=== PATIENT | male | born 1970 | race Caucasian/White ===

== ENCOUNTER 2025-02-05 11:37 | Emergency (ER) | payer OTHER ==
[~2025-02-05] VITALS: Ht 167.6 cm; Wt 76.4 kg
[2025-02-05 12:26] LABS: PLATELET COUNT (AUTO) 199 K/uL (150-450); RED BLOOD CELL COUNT(AUTO) 5.45 MIL/uL (4.50-5.90); RED CELL DISTRIBUTION WIDTH 13.8 % (11.5-14.5); WHITE BLOOD COUNT (AUTO) 11.3 K/uL (4.5-11.0)
[2025-02-05 12:37] LABS: CALCIUM, TOTAL 8.5 mg/dL (8.8-10.5); CREATININE 1.01 mg/dL (0.60-1.30); GLOMERULAR FILTR. RATE CALC > 60 mL/min (>60); GLUCOSE,RANDOM 105 mg/dL (70-110); SODIUM SERUM 139 mmol/L (136-145); UREA NITROGEN, BLOOD 9 mg/dL (7-18)
[2025-02-05] MEDS: MORPHINE SULFATE 2 MG/ML SYRINGE IVP ONE (12:40)
[2025-02-05] MEDS: ACETAMINOPHEN 500 MG TABLET PO ONE (12:40)
[2025-02-05] MEDS: LIDOCAINE 5% TRANSDERMAL PATCH TD ONE (12:40)
[2025-02-05 12:41] LABS: ASPARTATE AMINOTRANSFERASE 31.0 U/L (15-37); TOTAL PROTEIN, SERUM 8.3 g/dL (6.4-8.2)
[2025-02-05] MEDS ORDERED: SODIUM CHLORIDE 0.9% 100 ML ONE (13:44)
[2025-02-05] MEDS ORDERED: IOHEXOL 350 MG/ML 100 ML VIAL ONE (13:44)
[2025-02-05 14:07] LABS: APPEARANCE,URINE CLEAR (CLEAR); GLUCOSE, URINE (UA) NEGATIVE (NEGATIVE); LEUKOCYTE ESTERASE ,URINE NEGATIVE (NEGATIVE); NITRATE,URINE NEGATIVE (NEGATIVE); OCCULT BLOOD,URINE NEGATIVE (NEGATIVE); SPECIFIC GRAVITIY, URINE 1.013 (1.003-1.030)
[2025-02-05 14:12] VITALS: BP 125/68; PULSE 70; RESP 18; TEMP 98.1; O2SAT 99
== END 2025-02-05 16:31 ==
LOC: EMS 12:06
DX: S30.13XA Contusion of flank (latus) region, initial encounter (principal); R51.9 Headache, unspecified; M54.50 Low back pain, unspecified; R07.81 Pleurodynia; F41.9 Anxiety disorder, unspecified; W19.XXXA Unspecified fall, initial encounter; Y93.89 Activity, other specified; Y92.89 Other specified places as the place of occurrence of the external cause; Y99.8 Other external cause status
CPT/HCPCS: 70450; 99285; 96374; 71045; 80048; 80076; 81003; 83690; 85025; 36415; 71260; 72125; 72128; 72131; 72193; 74160; Q9967; J2270; J7050

== ENCOUNTER 2025-02-06 11:34 | Inpatient (IN) | payer OTHER ==
[~2025-02-06] VITALS: Ht 157.5 cm; Wt 76.4 kg
[2025-02-06] MEDS ORDERED: MAGNESIUM HYDROXIDE SUSPENSION 30 ML UDCUP PO PRN (13:45)
[2025-02-06] MEDS: ACETAMINOPHEN 325 MG TABLET PO PRN (14:24)
[2025-02-06 15:19] LABS: APPEARANCE,URINE CLEAR (CLEAR); GLUCOSE, URINE (UA) NEGATIVE (NEGATIVE); LEUKOCYTE ESTERASE ,URINE NEGATIVE (NEGATIVE); NITRATE,URINE NEGATIVE (NEGATIVE); OCCULT BLOOD,URINE NEGATIVE (NEGATIVE); PH,URINE DRUG SCREEN 5.5 (5.0-8.0); SPECIFIC GRAVITIY, URINE 1.004 (1.003-1.030)
[2025-02-06 15:25] LABS: AMPHET/METH SCREEN,URINE NEGATIVE (NEGATIVE); BARBITURATE SCREEN, URINE NEGATIVE (NEGATIVE); CANNABINOID SCREEN,URINE NEGATIVE (NEGATIVE); COCAINE SCREEN,URINE NEGATIVE (NEGATIVE); METHADONE SCREEN, URINE NEGATIVE (NEGATIVE)
[2025-02-06 15:28] LABS: ALCOHOL, URINE DRUG SCREEN NEGATIVE (NEGATIVE)
[2025-02-06 15:54] LABS: CALCIUM, TOTAL 8.3 mg/dL (8.8-10.5); CREATININE 0.68 mg/dL (0.60-1.30); GLOMERULAR FILTR. RATE CALC > 60 mL/min (>60); GLUCOSE,RANDOM 95 mg/dL (70-110); PLATELET COUNT (AUTO) 191 K/uL (150-450); RED BLOOD CELL COUNT(AUTO) 5.47 MIL/uL (4.50-5.90); RED CELL DISTRIBUTION WIDTH 14.0 % (11.5-14.5); SODIUM SERUM 142 mmol/L (136-145); UREA NITROGEN, BLOOD 7 mg/dL (7-18); WHITE BLOOD COUNT (AUTO) 8.6 K/uL (4.5-11.0)
[2025-02-06 20:53] VITALS: BP 150/97; PULSE 85; RESP 19; TEMP 98.2; O2SAT 99
[2025-02-06] MEDS: ZOLPIDEM TARTRATE 5 MG TABLET PO PRN (20:53)
[2025-02-06 21:06] LABS: MTB PCR w/Rif. Resistance-SPUT NOT DETECTED (Not Detectd)
[2025-02-07] MEDS ORDERED: SODIUM CHLORIDE 3% 15 ML NEB SOLUTION NEB ONE (01:17)
[2025-02-07 04:07] VITALS: BP 118/79; PULSE 80; RESP 18; TEMP 98.1; O2SAT 98
[2025-02-07 08:36] LABS: MTB PCR w/Rif. Resistance-SPUT NOT DETECTED (Not Detectd)
[2025-02-07 08:37] VITALS: BP 138/94; PULSE 70; RESP 18; TEMP 97.7; O2SAT 100
[2025-02-07] MEDS: FAMOTIDINE 20 MG TABLET PO SCH (09:14)
[2025-02-07 20:08] VITALS: BP 152/81; PULSE 85; RESP 18; TEMP 98.6; O2SAT 99
[2025-02-08 04:15] VITALS: BP 129/87; PULSE 84; RESP 18; TEMP 98.1; O2SAT 98
[2025-02-08 08:33] VITALS: BP 139/97; PULSE 88; RESP 20; TEMP 98.4; O2SAT 98
[2025-02-08 12:58] VITALS: BP 147/85; PULSE 73; RESP 18; TEMP 97.7; O2SAT 97
[2025-02-08] MEDS ORDERED: ALPR-707 PO (14:38)
[2025-02-08] MEDS ORDERED: ZOLP-685 PO (14:39)
[2025-02-08 16:07] LABS: QUANTIFERON+, Nil Value 0.02 IU/mL; QUANTIFERON+,Mitogen Value >10.00 IU/mL; QUANTIFERON+,TB1 Antigen Value 0.28 IU/mL; QUANTIFERON+,TB2 Antigen Value 0.18 IU/mL; QUANTIFERON, TB GOLD PLUS Negative (Negative)
[2025-02-08 19:56] VITALS: BP 133/81; PULSE 81; RESP 18; TEMP 99.5; O2SAT 99
[2025-02-09 04:56] VITALS: BP 121/85; PULSE 80; RESP 18; TEMP 98.8; O2SAT 97
[2025-02-09 08:29] VITALS: BP 129/87; PULSE 77; RESP 20; TEMP 98.2; O2SAT 97
[2025-02-09 20:14] VITALS: BP 132/92; PULSE 89; RESP 18; TEMP 98.1; O2SAT 97
[2025-02-10 05:27] VITALS: BP 128/97; PULSE 91; RESP 18; TEMP 98.4; O2SAT 98
[2025-02-10 08:32] VITALS: BP 140/86; PULSE 90; RESP 19; TEMP 98; O2SAT 97
[2025-02-10 19:41] VITALS: BP 137/88; PULSE 68; RESP 18; TEMP 97.7; O2SAT 97
[2025-02-11 05:10] VITALS: BP 136/95; PULSE 72; RESP 18; TEMP 98.9; O2SAT 96
[2025-02-11 08:00] VITALS: BP 135/95; PULSE 83; RESP 20; TEMP 98.1; O2SAT 98
[2025-02-11 20:00] VITALS: BP 141/96; PULSE 79; RESP 19; TEMP 98.4; O2SAT 98
== END 2025-02-11 23:30 | DRG 885 ==
LOC: EMS 11:36 → EDH 13:35 → 6S 20:40
PROVIDERS: ADMIT Internal Medicine; ATTEND Internal Medicine
PROC: GZ58ZZZ Individual Psychotherapy, Cognitive-Behavioral (ICD-10-PCS; principal; 2025-02-08)
PROC: GZ56ZZZ Individual Psychotherapy, Supportive (ICD-10-PCS; 2025-02-08)
DX: F33.1 Major depressive disorder, recurrent, moderate (principal); F13.239 Sedative, hypnotic or anxiolytic dependence with withdrawal, unspecified; F41.1 Generalized anxiety disorder; E66.9 Obesity, unspecified; G47.00 Insomnia, unspecified; Z78.9 Other specified health status; Z68.30 Body mass index [BMI] 30.0-30.9, adult
CPT/HCPCS: 71046; 71250; 80048; 80307; 81003; 85025; 86480; 87015; 87206; 87389; 87556; 94640; 99285; 36415-L1; 36415-TC

== ENCOUNTER 2025-02-13 13:35 | Inpatient (IN) | payer OTHER ==
[~2025-02-13] VITALS: Ht 162.6 cm; Wt 66.4 kg
[~2025-02-13 13:35] MED LIST: ZOLP-685 PO
[2025-02-13 15:22] LABS: PLATELET COUNT (AUTO) 200 K/uL (150-450); RED BLOOD CELL COUNT(AUTO) 5.71 MIL/uL (4.50-5.90); RED CELL DISTRIBUTION WIDTH 13.5 % (11.5-14.5); WHITE BLOOD COUNT (AUTO) 14.8 K/uL (4.5-11.0)
[2025-02-13 15:30] LABS: CALCIUM, TOTAL 8.8 mg/dL (8.8-10.5); CREATININE 1.11 mg/dL (0.60-1.30); GLOMERULAR FILTR. RATE CALC > 60 mL/min (>60); GLUCOSE,RANDOM 105 mg/dL (70-110); SODIUM SERUM 137 mmol/L (136-145); UREA NITROGEN, BLOOD 32 mg/dL (7-18)
[2025-02-13 15:32] LABS: ALCOHOL, BLOOD (SERUM) < 3 mg/dL (0-10)
[2025-02-13 15:35] LABS: ASPARTATE AMINOTRANSFERASE 39 U/L (15-37); TOTAL PROTEIN, SERUM 8.5 g/dL (6.4-8.2)
[2025-02-13] MEDS: SODIUM CHLORIDE 0.9% 1,000 ML IV ONE (16:00)
[2025-02-13] MEDS: LORazepam 2 MG/ML VIAL IVP ONE (16:00)
[2025-02-13] MEDS ORDERED: MORPHINE SULFATE 4 MG/ML SYRINGE IVP PRN (16:45)
[2025-02-13] MEDS ORDERED: BISACODYL 10 MG RECTAL RECTAL SUPPOSITORY PR PRN (16:45)
[2025-02-13] MEDS ORDERED: ONDANSETRON HCL 4 MG/2 ML VIAL IVP PRN (16:45)
[2025-02-13] MEDS ORDERED: ZOLPIDEM TARTRATE 5 MG TABLET PO PRN (16:45)
[2025-02-13] MEDS ORDERED: MAGNESIUM HYDROXIDE SUSPENSION 30 ML UDCUP PO PRN (16:45)
[2025-02-13] MEDS: MAGNESIUM SULFATE 2 GM, MVI, ADULT NO.1 WITH VIT K 10 ML, THIAMINE 100 MG, FOLIC ACID 1... IV ONE (17:16)
[2025-02-13 18:15] VITALS: BP 131/69; RESP 20; TEMP 98.8; O2SAT 98
[2025-02-13 20:24] VITALS: BP 111/75; PULSE 87; RESP 20; TEMP 98.4; O2SAT 98
[2025-02-13] MEDS: DOCUSATE SODIUM 100 MG CAPSULE PO SCH (21:00)
[2025-02-13 23:40] VITALS: BP 99/75; PULSE 87; RESP 20; TEMP 98.2; O2SAT 97
[2025-02-14] MEDS: HEPARIN SODIUM,PORCINE 5,000 UNITS/ML VIAL SQ SCH
[2025-02-14 03:07] LABS: APPEARANCE,URINE CLEAR (CLEAR); GLUCOSE, URINE (UA) NEGATIVE (NEGATIVE); LEUKOCYTE ESTERASE ,URINE NEGATIVE (NEGATIVE); NITRATE,URINE NEGATIVE (NEGATIVE); OCCULT BLOOD,URINE NEGATIVE (NEGATIVE); PH,URINE DRUG SCREEN 5.5 (5.0-8.0); SPECIFIC GRAVITIY, URINE 1.033 (1.003-1.030)
[2025-02-14 03:12] LABS: ALCOHOL, URINE DRUG SCREEN NEGATIVE (NEGATIVE); AMPHET/METH SCREEN,URINE NEGATIVE (NEGATIVE); BARBITURATE SCREEN, URINE NEGATIVE (NEGATIVE); CANNABINOID SCREEN,URINE NEGATIVE (NEGATIVE); COCAINE SCREEN,URINE NEGATIVE (NEGATIVE); METHADONE SCREEN, URINE NEGATIVE (NEGATIVE)
[2025-02-14 04:21] VITALS: BP 110/78; PULSE 84; RESP 19; TEMP 97.5; O2SAT 96
[2025-02-14 07:38] VITALS: BP 124/74; PULSE 91; RESP 18; TEMP 97.5; O2SAT 95
[2025-02-14 07:41] LABS: CALCIUM, TOTAL 7.7 mg/dL (8.8-10.5); CREATININE 0.95 mg/dL (0.60-1.30); GLOMERULAR FILTR. RATE CALC > 60 mL/min (>60); GLUCOSE,RANDOM 63 mg/dL (70-110); SODIUM SERUM 141 mmol/L (136-145); UREA NITROGEN, BLOOD 24 mg/dL (7-18)
[2025-02-14 07:45] LABS: PLATELET COUNT (AUTO) 173 K/uL (150-450); RED BLOOD CELL COUNT(AUTO) 5.01 MIL/uL (4.50-5.90); RED CELL DISTRIBUTION WIDTH 13.7 % (11.5-14.5); WHITE BLOOD COUNT (AUTO) 11.8 K/uL (4.5-11.0)
[2025-02-14] MEDS: PANTOPRAZOLE SODIUM 40 MG DR TABLET PO SCH (08:35)
[2025-02-14 12:02] VITALS: BP 118/68; PULSE 105; RESP 18; TEMP 98.1; O2SAT 98
[2025-02-14] MEDS: LORazepam 2 MG/ML VIAL IVP ONE (13:10)
[2025-02-14] MEDS ORDERED: LORazepam 2 MG/ML VIAL IVP ONE (13:30)
[2025-02-14 15:22] VITALS: BP 127/89; PULSE 130; RESP 18; TEMP 97.5; O2SAT 95
[2025-02-14] MEDS: MAGNESIUM SULFATE 2 GM, MVI, ADULT NO.1 WITH VIT K 10 ML, THIAMINE 100 MG, FOLIC ACID 1... IV ONE (18:21)
[2025-02-14 23:33] VITALS: BP 129/84; PULSE 103; RESP 17; TEMP 97.5; O2SAT 96
[2025-02-15] VITALS (8 sets, daily range): BP systolic 117–142; BP diastolic 72–90; PULSE 78–98; RESP 18–20; TEMP 97–98.8; O2SAT 94–98
[2025-02-15 06:55] LABS: PLATELET COUNT (AUTO) 187 K/uL (150-450); RED BLOOD CELL COUNT(AUTO) 5.03 MIL/uL (4.50-5.90); RED CELL DISTRIBUTION WIDTH 13.5 % (11.5-14.5); WHITE BLOOD COUNT (AUTO) 12.3 K/uL (4.5-11.0)
[2025-02-15 07:08] LABS: CALCIUM, TOTAL 7.3 mg/dL (8.8-10.5); CREATININE 0.86 mg/dL (0.60-1.30); GLOMERULAR FILTR. RATE CALC > 60 mL/min (>60); GLUCOSE,RANDOM 54 mg/dL (70-110); SODIUM SERUM 142 mmol/L (136-145); UREA NITROGEN, BLOOD 19 mg/dL (7-18)
[2025-02-15] MEDS: ACETAMINOPHEN 325 MG TABLET PO PRN (21:15)
[2025-02-16 04:30] VITALS: BP 114/69; PULSE 91; RESP 18; TEMP 98.2; O2SAT 98
[2025-02-16] MEDS: HYDROCODONE/ACETAMINOPHEN 5-325 MG TABLET PO PRN (05:20)
[2025-02-16 08:25] LABS: PLATELET COUNT (AUTO) 183 K/uL (150-450); RED BLOOD CELL COUNT(AUTO) 4.95 MIL/uL (4.50-5.90); RED CELL DISTRIBUTION WIDTH 13.7 % (11.5-14.5); WHITE BLOOD COUNT (AUTO) 7.3 K/uL (4.5-11.0)
[2025-02-16 08:28] VITALS: BP 115/62; PULSE 67; RESP 18; TEMP 98.2; O2SAT 98
[2025-02-16 08:41] LABS: CALCIUM, TOTAL 7.9 mg/dL (8.8-10.5); CREATININE 0.73 mg/dL (0.60-1.30); GLOMERULAR FILTR. RATE CALC > 60 mL/min (>60); GLUCOSE,RANDOM 85 mg/dL (70-110); SODIUM SERUM 141 mmol/L (136-145); UREA NITROGEN, BLOOD 12 mg/dL (7-18)
[2025-02-16] MEDS ORDERED: CHLO5CAP4 PO (14:54)
[2025-02-16 20:01] VITALS: BP 123/80; PULSE 63; RESP 18; TEMP 98.1; O2SAT 98
== END 2025-02-16 20:20 | DRG 93 ==
LOC: EMS 13:49 → EDH 16:35 → 5S 17:35 → 6S 02-16 04:16
PROVIDERS: ADMIT Internal Medicine; ATTEND Internal Medicine
DX: G92.8 Other toxic encephalopathy (principal); D72.829 Elevated white blood cell count, unspecified; F29 Unspecified psychosis not due to a substance or known physiological condition; R79.89 Other specified abnormal findings of blood chemistry; R00.0 Tachycardia, unspecified; F41.9 Anxiety disorder, unspecified; F32.9 Major depressive disorder, single episode, unspecified
CPT/HCPCS: 70450; 76770; 80048; 80076; 80307; 81003; 85025; 92610; 93005; 96361; 96374; 99285; G0480; J1630; J1644; J2060; J3411; J3475; J3490; J7030; 36415-L1; 36415-TC